=== PATIENT | male | born 1965 | race Caucasian/White ===

== ENCOUNTER 2018-02-05 14:20 | Emergency (ER) | payer OTHER ==
[~2018-02-05] VITALS: Ht 177.8 cm; Wt 108.9 kg
[~2018-02-05 14:20] MED LIST: ASA325 MG PO; CRESTOR20 MG PO; ENDUR-ACIN250 MG PO; PEPCID20 MG; PLAVIX75 MG PO; ZANTAC15 MG/ML; ZESTRIL2.5 MG
[2018-02-05] MEDS ORDERED: LIPITOR80 MG PO (14:56)
== END 2018-02-05 20:45 | disposition home or self-care (01) ==
LOC: ER 14:20 → CPU-OBS 14:28 → ER 14:28
DX: R07.89 Other chest pain (principal); F06.4 Anxiety disorder due to known physiological condition
CPT/HCPCS: G0378; G0379; 93005

== ENCOUNTER 2023-02-09 11:01 | Emergency (ER) | payer OTHER ==
[~2023-02-09] VITALS: Ht 177.8 cm; Wt 108.9 kg
[~2023-02-09 11:01] MED LIST changes: +LIPITOR80 MG PO
[2023-02-09] MEDS ORDERED: JENTADUETO 2.51 EAC2 PO (12:10)
== END 2023-02-09 13:36 | disposition home or self-care (01) ==
LOC: ER 11:01
DX: M62.830 Muscle spasm of back (principal); I10 Essential (primary) hypertension

== ENCOUNTER 2025-01-16 06:44 | Emergency (ER) | payer OTHER ==
[~2025-01-16] VITALS: Ht 177.8 cm; Wt 101.6 kg
[~2025-01-16 06:44] MED LIST changes: +JENTADUETO 2.51 EAC2 PO
[2025-01-16 07:24] VITALS: BP 110/69; O2SAT 99
[2025-01-16] MEDS ORDERED: ROSUVASTATIN CA40 MG PO (07:30)
[2025-01-16] MEDS ORDERED: TRIJARDY XR 5-1 EACH PO (07:30)
[2025-01-16] MEDS ORDERED: GLIMEPIRIDE4 M1 PO (07:30)
[2025-01-16] MEDS ORDERED: FENOFIBRATE160 MG PO (07:30)
[2025-01-16 09:32] LABS: BASO % 0.3 % (0.1-1.2); EOS # 0.10 (0.04-0.54); EOS % 1.2 % (0.7-7.0); LYMPH # 2.55 (1.18-3.74); LYMPH % 29.4 % (19.3-53.1); MEAN PLATELET VOLUME 9.20 fl (9.4-12.4); MONO # 1.27 (0.24-0.82); NEUT # 4.64 (1.56-6.13); NEUT % 53.6 % (34.0-71.1); RED CELL DISTRIBUTION WIDTH 11.4 % (11.6-14.4)
[2025-01-16 09:39] LABS: MONO % 14.7 % (4.7-12.5)
[2025-01-16 09:59] LABS: ALT/SGPT 76.0 U/L (12-78); AST/SGOT 34.0 U/L (15-37); BILIRUBIN TOTAL 1.1 mg/dL (0.3-1.2); BUN CREA RATIO 15.0 (7.0-25.0); CREATININE SERUM 1.23 mg/dL (0.70-1.30); GFR 60.02; GLOBULINA 4.2 G/DL (2.4-3.5); GLUCOSE FASTING 169.0 mg/dL (65-100); OSMOLALITY SERUM 280.0 MOSM/KG (275-295)
[2025-01-16 11:24] LABS: URINE APPEARANCE Clear; URINE BILIRRUBIN Negative (NEGATIVE); URINE BLOOD Negative; URINE COLOR Dark Yellow; URINE KETONE Trace (NEGATIVE); URINE LEUKOCYTE Negative; URINE NITRATE Negative; URINE PROTEIN Negative (NEGATIVE); URINE UROBILINOGEN 1.0 E.U./dl
[2025-01-16 11:25] LABS: URINE BACTERIA 103.1 uL (0.0-1933); URINE EPITHELIAL CELLS 5.6 uL (0.0-38.8); URINE RBC 2.1 uL (0.0-20.8); URINE WBC 8.4 uL (0.0-23.2)
[2025-01-16 11:43] LABS: URINE CAST 0.14 uL (0.0-1.40); URINE GLUCOSE 500 MG/DL (NEGATIVE)
== END 2025-01-16 16:19 | disposition home or self-care (01) ==
LOC: ER 06:49
PROVIDERS: Preventive Medicine Public Health & General Preventive Medicine
DX: R10.9 Unspecified abdominal pain (principal); I10 Essential (primary) hypertension; E11.9 Type 2 diabetes mellitus without complications; Z79.84 Long term (current) use of oral hypoglycemic drugs
CPT/HCPCS: 36415; 74177; 76700; 99284; Q9965